=== PATIENT | female | born 1940 | race Caucasian/White ===

== ENCOUNTER → 2016-06-15 | Outpatient (CLI) | payer MEDICARE, BC ==
--- NOTE | 2016-06-15 16:45 | DI ---
INDICATION: ITS.REASON: Z01.818 ENCOUNTER FOR OTHER PREPROCEDURAL EXAM PROCEDURE: CHEST 2-VIEWS UPRIGHT (PA \T\ LAT) Encounter: Initial COMPARISON: None FINDINGS: The lungs are clear without evidence of focal abnormal airspace opacity. There is no pleural effusion or pneumothorax. The heart size, mediastinal contours and pulmonary vascularity are within normal limits. Mild degenerative change in the thoracic spine. Orthopedic plate in the left humerus. IMPRESSION: No acute cardiopulmonary disease. .
== END ==
LOC: IMA 16:18
PROVIDERS: ATTEND Family Medicine
DX: Z01.818 Encounter for other preprocedural examination (principal)

== ENCOUNTER 2016-07-06 10:27 | Day surgery (SDC) | payer MEDICARE, BC ==
[~2016-07-06] VITALS: Ht 170.2 cm; Wt 93.2 kg
[~2016-07-06 10:27] MED LIST: AMIO200T2 PO; AMIT10TA6 PO; ASPI325T PO; CYAN250010 PO; ERGO400C PO; FLUO40CA49 PO; GABA-338 PO; LEVO50TA11 PO; LIDOCAINE 1% (10mg/ml) 2ml SDV INJ ONE; LORA10TA62 PO; LR 1,000 ML IV SCH; MONT10TA25 PO
--- OUTSIDE RECORDS SUMMARY | 2016-07-06 10:31 | XMS REPORT | Continuity of Care Document ---
Author Author [facility] Organization [facility] Address Unknown Phone Unavailable Allergies Active Description Code Type Severity Reaction Onset Reported/Identified Relationship to Patient Clinical Status Yes No Known Allergies Miscellaneous Allergy Unknown 06/29/2007 Medications Problems Procedures Results Encounters ACCT No. Visit Date/Time Discharge Status Pt. Type Provider Facility Loc./Unit Complaint [id number] 06/01/2012 13:33:00 2012 23:59:00 [facility] [id number] 04/10/2012 09:00:00 2012 23:59:59 CLS Outpatient Francisco Javier TURCIOS, [facility] IMG.RAD [id number] 04/09/2012 13:00:00 2012 23:59:00 DIS Outpatient Rosana TURCIOS, Noel Antoine [facility] CHI.SDCND [id number] 03/08/2012 13:31:00 2012 23:59:00 DIS Outpatient Francisco Javier TURCIOS, [facility] IMG.US
[2016-07-06 10:44] VITALS: Ht 170.2 cm; Wt 93.2 kg
[2016-07-06 10:46] VITALS: BP 128/71; PULSE 70; RESP 14; TEMP 97.9; O2SAT 95
--- NOTE | 2016-07-06 11:14 | ANESPREOP ---
Anesthesia Record Date and Time DATE: 07/06/16 TIME: 11:09 Pre-Op Diagnosis right carpel tunnel Proposed Surgical Procedure RCTR NPO since: mn Allergies: Coded Allergies: No Known Allergies (Unverified , 11/16/12) Ht/Wt/BMI Height: 5 ' 7.00 " Weight: 93.200 kg BMI: 32.2 kg/m2 Vital Signs Date Time Temp Pulse Resp B/P Pulse Ox O2 Delivery O2 Flow Rate FiO2 07/06/16 10:46 97.9 70 14 128/71 95 Room Air Medications Inpatient Medications Current Medications Medications (Trade) Dose Ordered Sig/Liz Start Time Stop Time Status Last Admin Dose Admin Lactated Ringer's (Lactated Ringers) 1,000 ml @ 50 mls/hr Q20H 07/06/16 07:00 Amiodarone HCl (Amiodarone HCl) 200 Mg Tablet, 1 TAB PO DAILY, (Reported) Last Taken: on 07/06/16 0930 Amitriptyline HCl (Amitriptyline HCl) 10 Mg Tablet, Unknown Dose PO, (Reported) Last Taken: on 07/05/16 2200 Aspirin (Aspirin) 325 Mg Tablet, Unknown Dose PO DAILY, (Reported) Last Taken: on 07/05/16 0800 Cholecalciferol (Vitamin D3) (Vitamin D) 400 Unit Capsule, Unknown Dose PO DAILY, (Reported) Last Taken: on 07/05/16 0800 Cyanocobalamin (Vitamin B-12) (Vitamin B12) 2, 500 Mcg Tablet, Unknown Dose PO DAILY, (Reported) Last Taken: on 07/05/16 0800 Fluoxetine HCl (Fluoxetine HCl) 40 Mg Capsule, 1 CAP PO DAILY, (Reported) Last Taken: on 07/05/16 0800 Gabapentin (Gabapentin) 300 Mg Capsule, 1 CAP PO DAILY, (Reported) Last Taken: on 07/05/16 2100 Levothyroxine Sodium (Levothyroxine Sodium) 50 Mcg Tablet, 1 TAB PO DAILY, (Reported) Last Taken: on 07/05/16 0800 Loratadine (Claritin) 10 Mg Tablet, 1 TAB PO DAILY, (Reported) Last Taken: on 07/05/16 0800 Montelukast Sodium (Montelukast Sodium) 10 Mg Tablet, 1 TAB PO HS, (Reported) Last Taken: on 07/05/16 0800 Currently on Beta Payam: No Medical/Surgical History Anesthesia PMH: Reports: Cardiac Arrythmia (atrial fib, does not see cardiolgist), Depression, Thyroid Disease (HX OF MASS ON LEFT TYROID-), Denies: *Angina, Anesthesia Reactions (NO AIRWAY ISSUES), Cancer, Glaucoma, Malignant Hyperthermia Smoking Status: Former smoker (1949) Alcohol Intake: none HX of Last Menstrual Period: 1985 Past Surgical History Orthopedic Surgeries: - LEFT MENISCAL REPAIR, LEFT FIBULA /HUMEROUS REPAIR Abdominal Surgeries: - APPY, GB Genitourinary Surgeries: Cardiac Surgeries: Endocrine Surgeries: Reproductive Surgeries: - HYSTERECTOMY Neurological Surgeries: Ear Surgeries: Nose Surgeries: Throat Surgeries: Yes - T/A Other Surgeries: - WISDOM TEETH EXTRACTION, Anesthesia Adverse Reactions: FOUND none Family Hx of Anesthesia Advers: none Pertinent Findings EKG Rhythm: Sinus Rhythm Physical Exam Respiratory: Bilat breath sounds equal, Lungs clear Cardiovascular: FOUND Regular rate, rhythm, FOUND No murmur Airway Assessment Mallampati Score: III TMD: 2 Fingerbreadths Neck Extension: Fair Overall Assessment: May Be Diff Intubation ASA: 3 Plan [employer] block on right side Anesthesia Plan: TIVA, LMA, GETA Discussion Discussed risks/options/alternatives of anesthesia and questions answered. Patient consents. Nursing pain assessment noted. Attestation Statement Prior to the delivery of any anesthetic medication, I examined the patient, developed the plan, obtained the patient's consent and discussed the risk and benefits of the procedure with the patient/guardian. MUSHTAQ OLIVEROS CRNA July 06, 2016 11:14
[2016-07-06] MEDS ORDERED: FENTANYL 100mcg/2ml INJECTION ONE (11:49)
[2016-07-06] MEDS ORDERED: MIDAZOLAM 2mg/2ml INJECTION ONE (11:49)
[2016-07-06] MEDS ORDERED: BUPIVACAINE 0.25% (2.5mg/ml) INJ 30ml SDV ONE (11:52)
[2016-07-06 12:34] VITALS: BP 152/76; PULSE 59; RESP 12; TEMP 97; O2SAT 93
[2016-07-06] MEDS ORDERED: ONDA4TAB4 PO (12:37)
[2016-07-06] MEDS ORDERED: HYDR-4246 PO (12:37)
--- NOTE | 2016-07-06 12:38 | PDPROCED ---
Immediate Operative Note DATE: 07/06/16 TIME: 12:37 Preop Diagnosis: RIGHT CTR Postop Diagnosis: Right CTS Surgical Procedures: R CTR Surgeon: [facility] [employer] Dipper: MARLON Romo Anesthesia: TIVA (Gayatri block) Complications: none Estimated Blood Loss see anesthesia KATINA MASTERS July 06, 2016 12:38
[2016-07-06 12:49] VITALS: BP 162/68; PULSE 60; RESP 18; O2SAT 95
--- NOTE | 2016-07-06 13:03 | ANESPO ---
Post-Op Note Date 07/06/16 Time: 13:00 Status Pt Participated in Evaluation: Pt participated in person Vital Signs Date Time Temp Pulse Resp B/P Pulse Ox O2 Delivery O2 Flow Rate FiO2 07/06/16 12:34 59 12 152/76 93 Room Air 07/06/16 10:46 97.9 Respiratory Function: Airway patent Cardiovascular Function: Regular pulse Mental Status: Alert/oriented Pain Level Intensity: 2 Hydration: Taking po fluids, IV infusing Complications during Recovery None apparent Follow-Up Instructions Instructions Per Surgeon MUSHTAQ OLIVEROS CRNA July 06, 2016 13:03
[2016-07-06 13:04] VITALS: PULSE 60; RESP 18; TEMP 97.2; O2SAT 97
[2016-07-06] MEDS ORDERED: CEFAZOLIN 1 GRAM INJECTION IV ONE (13:45)
--- NOTE | 2016-07-06 22:03 | OPNOTEF ---
DATE OF SURGERY 07/06/2016 PREOPERATIVE DIAGNOSIS Right carpal tunnel syndrome. POSTOPERATIVE DIAGNOSIS Right carpal tunnel syndrome. PROCEDURE Right carpal tunnel release. SURGEON Mauricio Sánchez MD SENIOR SERVICE TECHNICIAN Guanaco Travis PA-C ANESTHESIA [place] block with sedation. FLUIDS Please refer to Anesthesia chart EBL Minimal. TOURNIQUET Please refer to Anesthesia chart. COMPLICATIONS None. CONDITION Stable in recovery room. . DESCRIPTION Patient was identified in preoperative holding area. The operative extremity was identified and appropriately marked. Risks, benefits, alternatives, potential complications were discussed and informed consent was obtained. The patient was taken to the operating theatre, placed supine on the operating table. Appropriate cardiorespiratory monitors were applied. Gayatri block anesthesia was administered by the church business administrator and the tourniquet was inflated. The right upper extremity was then sterilely prepped and draped in the usual fashion. Surgical time-out was performed, confirmed with myself, the church business administrator and circulating nurse. Preoperative antibiotics were given. Appropriate surgical landmarks were delineated on the skin with a surgical marking pen. A 2.5-cm longitudinal incision was created just ulnar to the thenar crease. Blunt dissection was carried through the subcutaneous fat. Electrocautery was used for hemostasis as necessary. The palmar fascia was incised longitudinally and retractors were placed. Transverse carpal ligament was then incised longitudinally under direct visualization initially with a 15-blade knife until the synovium was visualized. Then tips of a tenotomy scissors were used to release distally to the level of the palmar arch proximally to and through the flexor retinaculum. The transverse carpal ligament was noted to be excessively thickened in this patient. The median nerve was inspected and noted to have an hourglass configuration. However, blood flow had returned to the nerve after release. No evidence of mass within the carpal tunnel. No significant synovitis or tendon tearing. The motor branch was intact. The wound was then copiously irrigated. Skin was closed with interrupted nylon sutures. Marcaine was injected along the incision line. Sterile dressings were applied followed by an Se bandage. The tourniquet was deflated. The patient was awakened from anesthesia and taken to the recovery room in stable and satisfactory condition. DAGOBERTO
== END 2016-07-06 13:10 | disposition home or self-care (01) ==
LOC: NSC 10:27
PROVIDERS: ATTEND Orthopaedic Surgery
DX: G56.01 Carpal tunnel syndrome, right upper limb (principal); I48.91 Unspecified atrial fibrillation; F32.9 Major depressive disorder, single episode, unspecified; F41.9 Anxiety disorder, unspecified; G43.909 Migraine, unspecified, not intractable, without status migrainosus; Z79.82 Long term (current) use of aspirin; Z79.899 Other long term (current) drug therapy; Z87.891 Personal history of nicotine dependence; Z90.49 Acquired absence of other specified parts of digestive tract; Z90.710 Acquired absence of both cervix and uterus
CPT/HCPCS: 64721; A6222; J0690; J2250; J3010; J7120